=== PATIENT | male | born 1985 | race African-American/Black ===

== ENCOUNTER 2018-03-14 11:26 | Emergency (ER) | payer SELFPAY ==
[~2018-03-14] VITALS: Ht 177.8 cm; Wt 95.2 kg
[2018-03-14 11:33] VITALS: Ht 177.8 cm; Wt 95.2 kg
[2018-03-14 13:29] VITALS: BP 111/91
== END 2018-03-14 13:29 | disposition other institution (70) ==
LOC: ED 11:26
DX: S00.83XA Contusion of other part of head, initial encounter (principal); X58.XXXA Exposure to other specified factors, initial encounter; Y93.89 Activity, other specified; Y92.89 Other specified places as the place of occurrence of the external cause; Y99.8 Other external cause status

== ENCOUNTER 2018-03-14 11:26 | Emergency (ER) | payer OTHER | END 2018-03-14 13:29 | disposition other institution (70) | LOC: ED 11:26 | DX: Z02.89 Encounter for other administrative examinations (principal) ==